=== PATIENT | female | born 1965 | race Caucasian/White ===

== ENCOUNTER 2016-10-04 12:58 | Inpatient (IN) | payer OTHER ==
[2016-10-04 13:27] VITALS: BMI 18.3
--- NOTE | 2016-10-04 15:39 | HP ---
CIWA Score - CIWA Score Nausea/Vomitin-Mild Nausea/No Vomiting Muscle Tremors: 4-Moderate,w/Arms Extend Anxiety: 3 Agitation: 4-Moderately Restless Paroxysmal Sweats: 3 Orientation: 0-Oriented Tacttile Disturbances: 0-None Auditory Disturbances: 0-None Visual Disturbances: 0-None Headache: 1-Very Mild CIWA-Ar Total Score: 16 Admission ROS [facility] - HPI Chief Complaint: I need to be here to stop drinking. Allergies/Adverse Reactions: Allergies Allergy/AdvReac Type Severity Reaction Status Date / Time No Known Allergies Allergy Verified 10/04/16 14:46 History of Present Illness: Pt is a 51yr old female with a history of alcohol dependence seeking detox for treatment. Exam Limitations: No Limitations - Ebola screening Have you traveled outside of the country in the last 21 days: No Have you had contact with anyone from an Ebola affected area: No Have you been sick,other than usual withdrawal symptoms: No Do you have a fever: No - Review of Systems Constitutional: Chills, Diaphoresis, Loss of Appetite, Night Sweats, Changes in sleep, Weight Stable EENT: reports: No Symptoms Reported, Blurred Vision Respiratory: reports: Cough, Productive cough Cardiac: reports: No Symptoms Reported, Syncope GI: reports: Diarrhea, Nausea, Poor Appetite, Poor Fluid Intake, Vomiting, Indigestion : reports: No Symptoms Reported Musculoskeletal: reports: Back Pain, Joint Pain, Muscle Pain Integumentary: reports: Bruising, Flushing, Pruritus, Sweating, Other ( scratches and scraps on skin from fall and her itching and scratching her skin) Neuro: reports: Tingling, Tremors Endocrine: reports: Excessive Sweating, Flushing, Intolerance to Cold, Intolerance to Heat Hematology: reports: No Symptoms Reported, Anemia Psychiatric: reports: No Sypmtoms Reported, Mood/Affect Appropiate, Orientated x3, Agitated, Anxious Other Systems: Reviewed and Negative Patient History - Patient Medical History Hx Anemia: No Hx Asthma: No Hx Chronic Obstructive Pulmonary Disease (COPD): No Hx Cancer: No Hx Cardiac Disorders: No Hx Congestive Heart Failure: No Hx Hypertension: No Hx Hypercholesterolemia: No Hx Pacemaker: No HX Cerebrovascular Accident: No Hx Seizures: Yes (2 days ago) Hx Dementia: No Hx Diabetes: No Hx Gastrointestinal Disorders: Yes Hx Liver Disease: No Hx Genitourinary Disorders: No Hx Sexually Transmitted Disorders: No Hx Renal Disease (ESRD): No Hx Thyroid Disease: No Hx Human Immunodeficiency Virus (HIV): No (negative) Hx Hepatitis C: No (negative) Hx Depression: Yes Hx Suicide Attempt: No Hx Bipolar Disorder: No Hx Schizophrenia: No - Patient Surgical History Past Surgical History: Yes Hx Neurologic Surgery: No Hx Cataract Extraction: No Hx Cardiac Surgery: No Hx Lung Surgery: No Hx Breast Surgery: No Hx Breast Biopsy: No Hx Abdominal Surgery: No Hx Appendectomy: No Hx Cholecystectomy: No Hx Genitourinary Surgery: No Hx Section: No Hx Orthopedic Surgery: Yes (bone spurs on left shoulder.) Other Surgical History: fx to left orbit Anesthesia Reaction: Yes (NAUSEA) - PPD History Previous Implant?: Yes Documented Results: Negative w/o proof PPD to be Administered?: Yes - Reproductive History Patient is a Female of Child Bearing Age (11 -55 yrs old): Yes Last Menstrual Period: 11/18/13 Patient : Yes - Smoking Cessation Smoking history: Current every day smoker Have you smoked in the past 12 months: Yes Aproximately how many cigarettes per day: 20 Cigars Per Day: 0 Hx Chewing Tobacco Use: No Initiated information on smoking cessation: Yes 'Breaking Loose' booklet given: 10/04/16 - Substance & Tx. History Hx Alcohol Use: Yes Substance Use Type: Alcohol Hx Substance Use Treatment: Yes (last detox 07/2015) - Substances Abused Alcohol Route: Oral Frequency: Daily Amount used: 2 pints of vodka Age of first use: 14 Date of Last Use: 10/04/16 Family Disease History - Family Disease History Family History: Denies Admission Physical Exam [facility] - Vital Signs Vital Signs: Vital Signs - 24 hr 10/04/16 13:24 Temperature 96.8 F L Pulse Rate 105 H Respiratory 20 Rate Blood Pressure 109/72 - Physical General Appearance: Yes: Moderate Distress, Thin, Tremorous, Irritable, Sweating , Anxious HEENTM: Yes: Normal Voice, Nasal Congestion, Rhinorrhea Respiratory: Yes: Lungs Clear, Normal Breath Sounds, No Respiratory Distress Neck: Yes: No masses,lesions,Nodules Breast: Yes: Within Normal Limits Cardiology: Yes: Regular Rhythm, Regular Rate, S1, S2 Abdominal: Yes: Normal Bowel Sounds, Non Tender, Soft Genitourinary: Yes: Within Normal Limits Back: Yes: Normal Inspection Musculoskeletal: Yes: full range of Motion, Back pain Extremities: Yes: Normal Inspection, Non-Tender, Tremors Neurological: Yes: Fully Oriented, Alert, Normal Response Integumentary: Yes: Normal Color, Diaphoresis Lymphatic: Yes: Within Normal Limits - Diagnostic (1) Alcohol dependence with withdrawal, uncomplicated Current Visit: Yes Status: Chronic (2) Nicotine dependence Current Visit: Yes Status: Chronic Qualifiers: Nicotine product type: cigarettes Substance use status: uncomplicated Qualified Code(s): F17.210 - Nicotine dependence, cigarettes, uncomplicated (3) Gastritis Current Visit: Yes Status: Chronic Qualifiers: Gastritis type: unspecified gastritis Chronicity: unspecified Gastritis bleeding: without bleeding Qualified Code(s): K29.70 - Gastritis, unspecified, without bleeding Cleared for Admission [facility] - Detox or Rehab [facility] Level of Care: Medically Managed Detox Regimen/Protocol: Librium [facility] Breath Alcohol Content Breath Alcohol Content: 0.333 Urine Pregancy Test - Result Urine Test Results: Negative- NO Line Present Urine Drug Screen - Results Drug Screen Negative: No Urine Drug Screen Results: COLTEN-Cocaine, BZO-Benzodiazepines
[2016-10-04] MEDS ORDERED: ACETAMINOPHEN 325 MG TABLET (FP) PO PRN (15:49)
[2016-10-04] MEDS ORDERED: guaiFENesin/D-METHORPHAN HB 10 ML UNIT-DOSE CUPS PO PRN (15:49)
[2016-10-04] MEDS ORDERED: MAGNESIUM CITRATE 300 ML BOTTLE PO PRN (15:49)
[2016-10-04] MEDS ORDERED: MAGNESIUM HYDROX 2400MG/30ML ORAL SUSPENSION 30 ML CUP PO PRN (15:49)
[2016-10-04] MEDS ORDERED: P-EPHED 60MG/TRIPROLIDI 2.5MG TABLET PO PRN (15:49)
[2016-10-04] MEDS ORDERED: IBUPROFEN 400 MG TABLET (FP) PO PRN (15:49)
[2016-10-04] MEDS ORDERED: NICOTINE POLACRILEX 4 MG GUM BC PRN (15:49)
[2016-10-04] MEDS ORDERED: diphenhydrAMINE HCL 50 MG CAPSULE PO PRN (15:49)
[2016-10-04] MEDS ORDERED: LOPERAMIDE HCL 2 MG CAPSULE PO PRN (15:49)
[2016-10-04] MEDS ORDERED: MENTHOL/PHENOL 1 EACH UD MM PRN (15:49)
[2016-10-04] MEDS ORDERED: hydrOXYzine PAMOATE 50 MG CAPSULE (FP) PO PRN (15:49)
[2016-10-04] MEDS ORDERED: chlordiazePOXIDE HCL 25 MG CAPSULE PO ONE (15:54)
[2016-10-04] MEDS ORDERED: ALBUTEROL SO4 2.5/IPRATROPIUM 0.5 INH SOL 3 ML VIAL.NEB. NEB PRN (15:56)
[2016-10-04] MEDS ORDERED: TRIMETHOBENZAMIDE HCL 200MG/2ML INJ IM PRN (15:57)
[2016-10-04] MEDS: chlordiazePOXIDE HCL 25 MG CAPSULE PO SCH ×2 (18:12→22:19)
[2016-10-04 19:03] LABS: URINE APPEARANCE SLCLOUDY; URINE BILIRUBIN NEGATIVE (NEGATIVE); URINE BLOOD NEGATIVE (NEGATIVE); URINE COLOR YELLOW; URINE GLUCOSE (UA) NEGATIVE (NEGATIVE); URINE KETONE NEGATIVE (NEGATIVE); URINE LEUK ESTERASE TRACE (NEGATIVE); URINE NITRITE NEGATIVE (NEGATIVE); URINE PROTEIN NEGATIVE (NEGATIVE); URINE UROBILINOGEN NEGATIVE mg/dL (0.2-1.0)
[2016-10-04 19:19] LABS: URINE BACTERIA RARE /hpf (NONE SEEN); URINE RBC 1 /hpf (0-3); URINE WBC 10 /hpf (3-5)
[2016-10-04] MEDS: chlordiazePOXIDE HCL 25 MG CAPSULE PO PRN (20:08)
[2016-10-04] MEDS: MAG HYDROX/AL HYDROX/SIMETH 30 ML UNIT-DOSE CUP PO PRN (20:09)
[2016-10-04] MEDS: THIAMINE HCL 100 MG TABLET (FP) PO SCH (22:19)
[2016-10-04] MEDS: ATORVASTATIN CA 10 MG TABLET (FP) PO SCH (22:19)
[2016-10-05] MEDS: chlordiazePOXIDE HCL 25 MG CAPSULE PO SCH ×4 (05:25→22:44)
[2016-10-05] MEDS: MAG HYDROX/AL HYDROX/SIMETH 30 ML UNIT-DOSE CUP PO PRN (09:01)
[2016-10-05] MEDS ORDERED: TRIMETHOBENZAMIDE HCL 200MG/2ML INJ IM PRN (09:14)
[2016-10-05] MEDS ORDERED: PRAZOSIN HCL 1 MG CAPSULE PO SCH (10:00)
[2016-10-05] MEDS: PANTOPRAZOLE 40 MG TABLET (FP) PO SCH (10:18)
[2016-10-05] MEDS: PRENATAL VITAMINS W/ FOLIC ACID TABLET (FP) PO SCH (10:18)
[2016-10-05] MEDS: NICOTINE 21 MG/24 HOURS TOPICAL PATCH TD SCH (10:20)
[2016-10-05 10:25] LABS: MCH 38.8 pg (25.7-33.7); MCHC 33.9 g/dl (32.0-36.0); MEAN CELL VOLUME 114.6 fl (80-96); MEAN PLT VOLUME 8.2 fl (7.5-11.1); PLATELET COUNT 158 K/MM3 (134-434); RDW 13.9 % (11.6-15.6); WHITE BLOOD COUNT 5.4 K/mm3 (4.0-10.0)
--- NOTE | 2016-10-05 10:42 | PN ---
[facility] CIWA - CIWA Score Nausea/Vomitin Muscle Tremors: 4-Moderate,w/Arms Extend Anxiety: 4-Mod. Anxious/Guarded Agitation: 4-Moderately Restless Paroxysmal Sweats: 3 Orientation: 0-Oriented Tacttile Disturbances: 2-Mild Itch/Numbness/Burn Auditory Disturbances: 0-None Visual Disturbances: 0-None Headache: 0-None Present CIWA-Ar Total Score: 19 BHS Progress Note (SOAP) Subjective: Anxiety,tremors,sweating,interrupted sleep,restless. Objective: 10/05/16 10:41 Vital Signs - 8 hr 10/05/16 10/05/16 10/05/16 03:30 06:00 10:00 Temperature 97.9 F 97.7 F Pulse Rate 58 L 66 Respiratory 18 18 18 Rate Blood Pressure 117/69 122/82 Laboratory Last Values WBC 5.4 K/mm3 (4.0-10.0) 10/05/16 06:00 RBC 3.48 M/mm3 (3.60-5.2) L 10/05/16 06:00 Hgb 13.5 GM/dL (10.7-15.3) D 10/05/16 06:00 Hct 39.9 % (32.4-45.2) 10/05/16 06:00 MCV 114.6 fl (80-96) H 10/05/16 06:00 MCH 38.8 pg (25.7-33.7) H D 10/05/16 06:00 MCHC 33.9 g/dl (32.0-36.0) 10/05/16 06:00 RDW 13.9 % (11.6-15.6) D 10/05/16 06:00 Plt Count 158 K/MM3 (134-434) D 10/05/16 06:00 MPV 8.2 fl (7.5-11.1) D 10/05/16 06:00 Urine Color Yellow 10/04/16 18:53 Urine Appearance Slcloudy 10/04/16 18:53 Urine pH 6.0 (5.0-8.0) 10/04/16 18:53 Ur Specific [place] 1.010 (1.005-1.025) 10/04/16 18:53 Urine Protein Negative (NEGATIVE) 10/04/16 18:53 Urine Glucose (UA) Negative (NEGATIVE) 10/04/16 18:53 Urine Ketones Negative (NEGATIVE) 10/04/16 18:53 Urine Blood Negative (NEGATIVE) 10/04/16 18:53 Urine Nitrite Negative (NEGATIVE) 10/04/16 18:53 Urine Bilirubin Negative (NEGATIVE) 10/04/16 18:53 Urine Urobilinogen Negative mg/dL (0.2-1.0) 10/04/16 18:53 Ur Leukocyte Esterase Trace (NEGATIVE) 10/04/16 18:53 Urine RBC 1 /hpf (0-3) 10/04/16 18:53 Urine WBC 10 /hpf (3-5) 10/04/16 18:53 Ur Epithelial Cells Rare /hpf (FEW) 10/04/16 18:53 Urine Bacteria Rare /hpf (NONE SEEN) 10/04/16 18:53 labs noted Assessment: 10/05/16 10:41 Withdrawal sx. Plan: Continue detox
[2016-10-05 10:52] LABS: ALBUMIN 3.6 g/dl (3.4-5.0); ANION GAP 14 (8-16); CALCIUM 8.4 mg/dL (8.5-10.1); CO2 26 mmol/L (21-32); GLUCOSE,RANDOM 125 mg/dL (74-106)
[2016-10-05 10:55] LABS: ALK PHOS 169 U/L (45-117); BILIRUBIN,TOTAL 0.6 mg/dL (0.2-1.0); CREATININE 0.7 mg/dL (0.55-1.02); SGOT/AST 233 U/L (15-37); SGPT/ALT 99 U/L (12-78); TOT PROT 7.4 g/dl (6.4-8.2)
[2016-10-05] MEDS ORDERED: POTASSIUM CHLORIDE TABS 20 MEQ TABLET.ER (FP) PO ONE (13:18)
[2016-10-05] MEDS: chlordiazePOXIDE HCL 25 MG CAPSULE PO PRN (14:40)
--- NOTE | 2016-10-05 17:37 | CONSULT ---
[facility] Psychiatric Consult - Data Date of interview: 10/05/16 Admission source: 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 Substance Abuse History: Patient confirms this report in this interview. Smoking Cessation. Smoking history: Current every day smoker. Have you smoked in the past 12 months: Yes. Aproximately how many cigarettes per day: 20. Cigars Per Day: 0. Hx Chewing Tobacco Use: No. Initiated information on smoking cessation: Yes. 'Breaking Loose' booklet given: 10/04/16. - Substance & Tx. History. Hx Alcohol Use: Yes. Substance Use Type: Alcohol. Hx Substance Use Treatment: Yes (last detox 07/2015). - Substances Abused. Alcohol. Route: Oral. Frequency: Daily. Amount used: 2 pints of vodka. Age of first use: 14. Date of Last Use: 10/04/16 Medical History: History of pancreatitis,gastritis,colitis,alcohol-related seizures and fracture of right fibula.Patient uses a cane for ambulation. Psychiatric History: History of one psychiatric hospitalization (1995) at [facility] ([address]).Diagnosed with Bipolar Disorder, PTSD,Panic Disorder and MDD (self-report).Ms Nava is currently followed by [facility]esta psychiatrist at the [facility].Medications : prozac 80 mg/day + neurontin 600 mg po tid + ambien 10 mg/hs + prazosin 1 mg/ hs).No history of suicide attempts. Physical/Sexual Abuse/Trauma History: Not discussed in this interview. Additional Comment: Urine Drug Screen Results: COLTEN-Cocaine, BZO- Benzodiazepines.Noted. Mental Status Exam - Mental Status Exam Alert and Oriented to: Time, Place, Person Cognitive Function: Grossly Intact Patient Appearance: Unkempt, Disheveled (thin habitus) Mood: Withdrawn, Anxious Affect: Constricted Patient Behavior: Fatigued, Cooperative Speech Pattern: Clear Voice Loudness: Moderately Soft/Quiet Thought Process: Goal Oriented Thought Disorder: Not Present Hallucinations: Denies Suicidal Ideation: Denies Homicidal Ideation: Denies Insight/Judgement: Poor Sleep: Poorly, Difficulty falling asleep Appetite: Poor, Weight loss Gait/Station: Normal Psychiatric Findings - Problem List ([place] 1, 2,3) (1) Alcohol dependence with withdrawal, uncomplicated Current Visit: Yes Status: Acute (2) Cocaine dependence Current Visit: Yes Status: Acute Qualifiers: Substance use status: uncomplicated Qualified Code(s): F14.20 - Cocaine dependence, uncomplicated (3) Nicotine dependence Current Visit: Yes Status: Acute Qualifiers: Nicotine product type: cigarettes Substance use status: uncomplicated Qualified Code(s): F17.210 - Nicotine dependence, cigarettes, uncomplicated (4) Drug-induced mood disorder Current Visit: Yes Status: Acute (5) Bipolar disorder Current Visit: Yes Status: Chronic Comment: Historical diagnosis. (6) Post traumatic stress disorder (PTSD) Current Visit: Yes Status: Chronic (7) Gastritis Current Visit: Yes Status: Chronic Qualifiers: Gastritis type: unspecified gastritis Chronicity: unspecified Gastritis bleeding: without bleeding Qualified Code(s): K29.70 - Gastritis, unspecified, without bleeding (8) Hyperlipidemia Current Visit: Yes Status: Chronic Qualifiers: Hyperlipidemia type: mixed hyperlipidemia Qualified Code(s): E78.2 - Mixed hyperlipidemia (9) Insomnia Current Visit: Yes Status: Acute - Initial Treatment Plan Initial Treatment Plan: Psychoeducation.Detoxification.Ambien 10 mg po hs prn.Patient is made aware of risk of parasomnias.She agrees with this careplan.Observation.Patient reports that she has not taken her medications for more than a week.Wants to resume prozac.Will restart at 30 mg po daily as a precaution (patient is not a reliable historian).
[2016-10-05] MEDS: TRIMETHOBENZAMIDE HCL 300 MG CAPSULE PO PRN (22:44)
[2016-10-05] MEDS: THIAMINE HCL 100 MG TABLET (FP) PO SCH (22:44)
[2016-10-05] MEDS: PRAZOSIN HCL 1 MG CAPSULE PO SCH (22:44)
[2016-10-05] MEDS: ATORVASTATIN CA 10 MG TABLET (FP) PO SCH (22:44)
[2016-10-05] MEDS: POTASSIUM CHLORIDE TABS 20 MEQ TABLET.ER (FP) PO SCH (22:44)
[2016-10-06] MEDS: chlordiazePOXIDE HCL 25 MG CAPSULE PO SCH ×2 (06:17→10:50)
[2016-10-06] MEDS ORDERED: FLUoxetine HCL 10 MG CAPSULE (FP) PO SCH (10:00)
[2016-10-06] MEDS: PRENATAL VITAMINS W/ FOLIC ACID TABLET (FP) PO SCH (10:49)
[2016-10-06] MEDS: PANTOPRAZOLE 40 MG TABLET (FP) PO SCH (10:50)
[2016-10-06] MEDS: POTASSIUM CHLORIDE TABS 20 MEQ TABLET.ER (FP) PO SCH ×2 (10:50→23:18)
[2016-10-06] MEDS: NICOTINE 21 MG/24 HOURS TOPICAL PATCH TD SCH (10:50)
[2016-10-06] MEDS: FLUoxetine HCL 10 MG CAPSULE (FP) PO SCH (10:50)
--- NOTE | 2016-10-06 11:19 | PN ---
S CIWA - CIWA Score Nausea/Vomitin Muscle Tremors: 4-Moderate,w/Arms Extend Anxiety: 4-Mod. Anxious/Guarded Agitation: 4-Moderately Restless Paroxysmal Sweats: 3 Orientation: 0-Oriented Tacttile Disturbances: 0-None Auditory Disturbances: 0-None Visual Disturbances: 0-None Headache: 0-None Present CIWA-Ar Total Score: 18 [facility] Progress Note (SOAP) Subjective: Angry,yelling because she did not sleep last night.Tremors,sweating,interrupted sleep,nausea,vomiting, body aches. Objective: 10/06/16 11:18 Vital Signs - 8 hr 10/06/16 10/06/16 10/06/16 03:30 06:00 10:00 Temperature 97.9 F 97.7 F Pulse Rate 68 76 Respiratory 18 18 18 Rate Blood Pressure 104/69 100/76 Laboratory Last Values WBC 5.4 K/mm3 (4.0-10.0) 10/05/16 06:00 RBC 3.48 M/mm3 (3.60-5.2) L 10/05/16 06:00 Hgb 13.5 GM/dL (10.7-15.3) D 10/05/16 06:00 Hct 39.9 % (32.4-45.2) 10/05/16 06:00 MCV 114.6 fl (80-96) H 10/05/16 06:00 MCH 38.8 pg (25.7-33.7) H D 10/05/16 06:00 MCHC 33.9 g/dl (32.0-36.0) 10/05/16 06:00 RDW 13.9 % (11.6-15.6) D 10/05/16 06:00 Plt Count 158 K/MM3 (134-434) D 10/05/16 06:00 MPV 8.2 fl (7.5-11.1) D 10/05/16 06:00 Sodium 138 mmol/L (136-145) 10/05/16 06:00 Potassium 2.9 mmol/L (3.5-5.1) L* D 10/05/16 06:00 Chloride 98 mmol/L (98-107) 10/05/16 06:00 Carbon Dioxide 26 mmol/L (21-32) 10/05/16 06:00 Anion Gap 14 (8-16) 10/05/16 06:00 BUN 8 mg/dL (7-18) D 10/05/16 06:00 Creatinine 0.7 mg/dL (0.55-1.02) D 10/05/16 06:00 Creat Clearance w eGFR > 60 (>60) 10/05/16 06:00 Random Glucose 125 mg/dL (74-106) H D 10/05/16 06:00 Calcium 8.4 mg/dL (8.5-10.1) L 10/05/16 06:00 Total Bilirubin 0.6 mg/dL (0.2-1.0) 10/05/16 06:00 AST 233 U/L (15-37) H D 10/05/16 06:00 ALT 99 U/L (12-78) H D 10/05/16 06:00 Alkaline Phosphatase 169 U/L (45-117) H D 10/05/16 06:00 Total Protein 7.4 g/dl (6.4-8.2) 10/05/16 06:00 Albumin 3.6 g/dl (3.4-5.0) 10/05/16 06:00 Urine Color Yellow 10/04/16 18:53 Urine Appearance Slcloudy 10/04/16 18:53 Urine pH 6.0 (5.0-8.0) 10/04/16 18:53 Ur Specific [place] 1.010 (1.005-1.025) 10/04/16 18:53 Urine Protein Negative (NEGATIVE) 10/04/16 18:53 Urine Glucose (UA) Negative (NEGATIVE) 10/04/16 18:53 Urine Ketones Negative (NEGATIVE) 10/04/16 18:53 Urine Blood Negative (NEGATIVE) 10/04/16 18:53 Urine Nitrite Negative (NEGATIVE) 10/04/16 18:53 Urine Bilirubin Negative (NEGATIVE) 10/04/16 18:53 Urine Urobilinogen Negative mg/dL (0.2-1.0) 10/04/16 18:53 Ur Leukocyte Esterase Trace (NEGATIVE) 10/04/16 18:53 Urine RBC 1 /hpf (0-3) 10/04/16 18:53 Urine WBC 10 /hpf (3-5) 10/04/16 18:53 Ur Epithelial Cells Rare /hpf (FEW) 10/04/16 18:53 Urine Bacteria Rare /hpf (NONE SEEN) 10/04/16 18:53 RPR Titer Nonreactive (NONREACTIVE) 10/05/16 06:00 labs noted Assessment: 10/06/16 11:19 Withdrawal sx. Plan: continue detox
[2016-10-06] MEDS: chlordiazePOXIDE HCL 25 MG CAPSULE PO PRN (11:59)
[2016-10-06] MEDS: TRIMETHOBENZAMIDE HCL 300 MG CAPSULE PO PRN (11:59)
--- NOTE | 2016-10-06 13:29 | PN ---
[facility] Progress Note Note: Pt. claims that nurse gave the tigan IM in the wrong spot. She proceeded to tell & show us where the nurse gave the injection -in the outer upper quadrant. The nursing grading supervisor and & I toll her that this is where the injection should be given. Pt. is still unhappy and started to yell at us. P : D/C tigan IM & PO Zofran 8mg sl q4h prn Gabapentin 300mg bid
--- NOTE | 2016-10-06 14:01 | EKG ---
Test Reason : Blood Pressure : / mmHG Vent. Rate : 073 BPM Atrial Rate : 073 BPM P-R Int : 130 ms QRS Dur : 100 ms QT Int : 404 ms P-R-T Axes : 059 080 073 degrees QTc Int : 445 ms NORMAL SINUS RHYTHM NORMAL ECG NO PREVIOUS ECGS AVAILABLE Confirmed by JABARI CASSIDY, SURESH ([id number] on 10/06/2016 2:00:50 PM Referred By: Confirmed By:SURESH BARBOZA MD
[2016-10-06] MEDS: GABAPENTIN 300 MG CAPSULE (FP) PO SCH ×2 (14:24→22:57)
[2016-10-06] MEDS: ONDANSETRON *ODT* 4 MG TABLET SL PRN (14:24)
[2016-10-06] MEDS: chlordiazePOXIDE 5 MG CAPSULE PO SCH ×2 (17:19→22:56)
[2016-10-06] MEDS ORDERED: ZOLPIDEM TARTRATE 5 MG TABLET PO SCH (22:00)
[2016-10-06] MEDS: ATORVASTATIN CA 10 MG TABLET (FP) PO SCH (22:56)
[2016-10-06] MEDS: PRAZOSIN HCL 1 MG CAPSULE PO SCH (22:57)
[2016-10-06] MEDS: THIAMINE HCL 100 MG TABLET (FP) PO SCH (22:57)
[2016-10-07] MEDS: chlordiazePOXIDE 5 MG CAPSULE PO SCH ×2 (06:10→10:34)
[2016-10-07] MEDS: PANTOPRAZOLE 40 MG TABLET (FP) PO SCH (10:34)
[2016-10-07] MEDS: POTASSIUM CHLORIDE TABS 20 MEQ TABLET.ER (FP) PO SCH ×2 (10:34→22:46)
[2016-10-07] MEDS: NICOTINE 21 MG/24 HOURS TOPICAL PATCH TD SCH (10:34)
[2016-10-07] MEDS: GABAPENTIN 300 MG CAPSULE (FP) PO SCH ×2 (10:34→22:46)
[2016-10-07] MEDS: PRENATAL VITAMINS W/ FOLIC ACID TABLET (FP) PO SCH (10:34)
[2016-10-07] MEDS: FLUoxetine HCL 10 MG CAPSULE (FP) PO SCH (10:36)
--- NOTE | 2016-10-07 10:46 | PN ---
[facility] Progress Note (SOAP) Subjective: irritable yelling cursing nausea Objective: 10/07/16 10:44 Vital Signs Temperature 97.7 F 10/07/16 10:22 Pulse Rate 58 L 10/07/16 10:22 Respiratory Rate 18 10/07/16 10:22 Blood Pressure 90/62 10/07/16 10:22 O2 Sat by Pulse Oximetry (%) awake/alert no acute distress ambulating Assessment: 10/07/16 10:45 withdrawal sx Plan: continue detox increase fluids continue anti-nausea medication as ordered d/c in am
[2016-10-07] MEDS: chlordiazePOXIDE HCL 10 MG CAPSULE PO SCH ×2 (17:43→22:46)
[2016-10-07] MEDS: ATORVASTATIN CA 10 MG TABLET (FP) PO SCH (22:46)
[2016-10-07] MEDS: THIAMINE HCL 100 MG TABLET (FP) PO SCH (22:46)
[2016-10-08 06:32] VITALS: BP 94/52; PULSE 50; TEMP 97.5
[2016-10-08] MEDS: chlordiazePOXIDE HCL 10 MG CAPSULE PO SCH (07:50)
[2016-10-08] MEDS: ONDANSETRON *ODT* 4 MG TABLET SL PRN (08:15)
[2016-10-08] MEDS: MAG HYDROX/AL HYDROX/SIMETH 30 ML UNIT-DOSE CUP PO PRN (08:15)
[2016-10-08] MEDS: NICOTINE 21 MG/24 HOURS TOPICAL PATCH TD SCH (09:01)
[2016-10-08] MEDS: GABAPENTIN 300 MG CAPSULE (FP) PO SCH (09:01)
[2016-10-08] MEDS: PANTOPRAZOLE 40 MG TABLET (FP) PO SCH (09:01)
[2016-10-08] MEDS: POTASSIUM CHLORIDE TABS 20 MEQ TABLET.ER (FP) PO SCH (09:01)
[2016-10-08] MEDS: FLUoxetine HCL 10 MG CAPSULE (FP) PO SCH (09:01)
[2016-10-08] MEDS: PRENATAL VITAMINS W/ FOLIC ACID TABLET (FP) PO SCH (09:01)
--- NOTE | 2016-10-08 09:05 | DS ---
[facility] Detox Discharge Summary Admission Date: 10/04/16 Discharge Date: 10/08/16 - History Present History: Alcohol Dependence, Cocaine Dependence - Physical Exam Results Vital Signs: Vital Signs Temperature 97.5 F L 10/08/16 06:32 Pulse Rate 50 L 10/08/16 06:32 Respiratory Rate 16 10/08/16 06:32 Blood Pressure 94/52 10/08/16 06:32 O2 Sat by Pulse Oximetry (%) - Treatment Hospital Course: Detox Protocol Followed, Detoxed Safely, Responded well, Discharged Condition Good, Rehab Referral Accepted - Medication Discharge Medications: Ambulatory Orders Pantoprazole Sodium [Protonix -] 40 mg PO DAILY #30 tablet.ec 01/09/15 Zolpidem Tartrate [Ambien] 10 mg PO HS #30 tablet 01/09/15 Simvastatin [Zocor -] 5 mg PO HS 08/09/15 Fluoxetine HCl [Prozac -] 80 mg PO DAILY 10/04/16 Gabapentin [Neurontin] 600 mg PO TID 10/04/16 Prazosin HCl [Minipress -] 2 mg PO BID 10/04/16 - Diagnosis (1) Alcohol dependence with withdrawal, uncomplicated Current Visit: Yes Status: Chronic (2) Nicotine dependence Current Visit: Yes Status: Chronic Qualifiers: Nicotine product type: cigarettes Substance use status: uncomplicated Qualified Code(s): F17.210 - Nicotine dependence, cigarettes, uncomplicated (3) Gastritis Current Visit: Yes Status: Chronic Qualifiers: Gastritis type: unspecified gastritis Chronicity: unspecified Gastritis bleeding: without bleeding Qualified Code(s): K29.70 - Gastritis, unspecified, without bleeding - AMA Did Patient Leave Against Medical Advice: No ("I am going home")
== END 2016-10-08 09:14 | disposition home or self-care (01) | DRG 774 ==
LOC: YASAS 12:58 → Y6N 15:45
PROVIDERS: ADMIT Internal Medicine; ATTEND Internal Medicine
PROC: HZ2ZZZZ Detoxification Services for Substance Abuse Treatment (ICD-10-PCS; principal; 2016-10-04)
DX: F10.230 Alcohol dependence with withdrawal, uncomplicated (principal); F14.20 Cocaine dependence, uncomplicated; F17.210 Nicotine dependence, cigarettes, uncomplicated; F19.24 Other psychoactive substance dependence with psychoactive substance-induced mood disorder; F31.9 Bipolar disorder, unspecified; F43.10 Post-traumatic stress disorder, unspecified; K29.70 Gastritis, unspecified, without bleeding; E78.2 Mixed hyperlipidemia; G47.00 Insomnia, unspecified; R26.2 Difficulty in walking, not elsewhere classified; Z99.89 Dependence on other enabling machines and devices; Z86.69 Personal history of other diseases of the nervous system and sense organs
CPT/HCPCS: 36415; 80053; 81003; 81015; 85027; 86593; 93005; 93010

== ENCOUNTER 2021-07-25 12:49 | Inpatient (IN) | payer OTHER ==
[2021-07-25] MEDS ORDERED: MAGNESIUM CITRATE 300 ML BOTTLE PO PRN (15:32)
[2021-07-25] MEDS ORDERED: IBUPROFEN 600 MG TABLET (FP) PO PRN (15:32)
[2021-07-25] MEDS ORDERED: DICYCLOMINE HCL 10 MG CAPSULE PO PRN (15:32)
[2021-07-25] MEDS ORDERED: LOPERAMIDE HCL 2 MG CAPSULE PO PRN (15:32)
[2021-07-25] MEDS ORDERED: NALOXONE HCL (KLOXXADO) 8 MG SPRAY NS PRN (15:32)
[2021-07-25] MEDS ORDERED: IBUPROFEN 400 MG TABLET (FP) PO PRN (15:32)
[2021-07-25] MEDS ORDERED: BISMUTH SUBSALICYLATE 524 MG/30 ML PO PRN (15:32)
[2021-07-25] MEDS ORDERED: ACETAMINOPHEN 325 MG TABLET (FP) PO PRN ×2 (15:32)
[2021-07-25] MEDS ORDERED: BENZOCAINE/MENTHOL (CHLORASEPTIC ) LOZENGE MM PRN (15:32)
[2021-07-25] MEDS ORDERED: NICOTINE 10 MG CARTRIDGE (INHALER) IH PRN (15:32)
[2021-07-25] MEDS ORDERED: MAGNESIUM HYDROX 2400MG/30ML ORAL SUSPENSION 30 ML CUP PO PRN (15:32)
[2021-07-25] MEDS ORDERED: TRIMETHOBENZAMIDE HCL 200MG/2ML INJ IM ONE (15:45)
[2021-07-25 16:43] VITALS: BMI 17.7
[2021-07-25] MEDS: PRENATAL VITAMINS W/ FOLIC ACID TABLET (FP) PO SCH (18:28)
[2021-07-25] MEDS: hydrOXYzine PAMOATE 25 MG CAPSULE (FP) PO SCH ×2 (18:29→22:55)
[2021-07-25] MEDS: LORazepam 2 MG TABLET PO SCH ×2 (18:29→22:55)
[2021-07-25] MEDS: LORazepam 1 MG TABLET PO PRN (19:52)
[2021-07-25] MEDS: THIAMINE HCL 100 MG TABLET (FP) PO SCH (22:55)
[2021-07-25] MEDS: MELATONIN 5 MG TABLETS PO SCH (22:55)
[2021-07-26] MEDS: LORazepam 2 MG TABLET PO SCH ×4 (06:19→22:27)
[2021-07-26] MEDS: hydrOXYzine PAMOATE 25 MG CAPSULE (FP) PO SCH ×5 (06:19→22:27)
[2021-07-26] MEDS: PRENATAL VITAMINS W/ FOLIC ACID TABLET (FP) PO SCH (10:15)
[2021-07-26 11:03] LABS: HEMATOCRIT 36.9 % (32.4-45.2); HEMOGLOBIN 12.4 GM/dL (10.7-15.3); MCH 33.5 pg (25.7-33.7); MCHC 33.7 g/dl (32.0-36.0); MEAN CELL VOLUME 99.5 fl (80-96); MEAN PLT VOLUME 7.2 fl (7.5-11.1); PLATELET COUNT 176 10^3/uL (134-434); RBC 3.71 M/mm3 (3.60-5.2); RDW 14.4 % (11.6-15.6); WHITE BLOOD COUNT 4.4 K/mm3 (4.0-10.0)
[2021-07-26 11:20] LABS: BLOOD UREA NITROGEN 17.3 mg/dL (7-18); CREATININE 0.7 mg/dL (0.55-1.3)
[2021-07-26 11:22] LABS: BILIRUBIN,TOTAL 0.8 mg/dL (0.2-1); CALCIUM 9.1 mg/dL (8.5-10.1); TOT PROT 7.2 g/dl (6.4-8.2)
[2021-07-26 11:23] LABS: ALBUMIN 3.5 g/dl (3.4-5.0)
[2021-07-26] MEDS ORDERED: cloNIDine HCL 0.1 MG TABLET PO PRN (14:18)
[2021-07-26] MEDS ORDERED: POTASSIUM CHLORIDE ORAL LIQUID 20 MEQ/15 ML PO ONE ×2 (15:00→19:00)
[2021-07-26] MEDS ORDERED: DIPHENOXYLATE 2.5/ATROPINE.025 1 COMBO TABLET PO ONE (15:20)
[2021-07-26] MEDS: BACITRACIN 0.9 GM PACKET TP SCH (15:25)
[2021-07-26] MEDS: PANTOPRAZOLE 40 MG TABLET PO SCH (15:26)
[2021-07-26] MEDS: MELATONIN 5 MG TABLETS PO SCH (22:26)
[2021-07-26] MEDS: THIAMINE HCL 100 MG TABLET (FP) PO SCH (22:27)
[2021-07-26] MEDS: METHOCARBAMOL 500 MG TABLET PO PRN (22:27)
[2021-07-27] MEDS: LORazepam 1 MG TABLET PO SCH ×4 (07:16→23:22)
[2021-07-27] MEDS: hydrOXYzine PAMOATE 25 MG CAPSULE (FP) PO SCH ×5 (07:17→23:26)
[2021-07-27] MEDS: PRENATAL VITAMINS W/ FOLIC ACID TABLET (FP) PO SCH (10:25)
[2021-07-27] MEDS: BACITRACIN 0.9 GM PACKET TP SCH (10:25)
[2021-07-27] MEDS: PANTOPRAZOLE 40 MG TABLET PO SCH (10:26)
[2021-07-27] MEDS: LORazepam 1 MG TABLET PO PRN (13:53)
[2021-07-27] MEDS: METHOCARBAMOL 500 MG TABLET PO PRN (18:08)
[2021-07-27] MEDS: MELATONIN 5 MG TABLETS PO SCH (23:25)
[2021-07-27] MEDS: THIAMINE HCL 100 MG TABLET (FP) PO SCH (23:27)
[2021-07-28] MEDS: ONDANSETRON *ODT* 4 MG TABLET SL PRN (01:33)
[2021-07-28] MEDS ORDERED: TRIMETHOBENZAMIDE HCL 200MG/2ML INJ IM ONE (05:03)
[2021-07-28] MEDS: LORazepam 0.5 MG TABLET PO SCH ×4 (05:21→22:23)
[2021-07-28] MEDS: hydrOXYzine PAMOATE 25 MG CAPSULE (FP) PO SCH ×5 (05:22→22:22)
[2021-07-28] MEDS: METHOCARBAMOL 500 MG TABLET PO PRN ×2 (06:29→18:16)
[2021-07-28] MEDS: LORazepam 0.5 MG TABLET PO PRN ×2 (07:21→20:21)
[2021-07-28] MEDS: MAG HYDROX/AL HYDROX/SIMETH 30 ML UNIT-DOSE CUP PO PRN ×2 (09:20→16:33)
[2021-07-28] MEDS: PANTOPRAZOLE 40 MG TABLET PO SCH (09:22)
[2021-07-28] MEDS: PRENATAL VITAMINS W/ FOLIC ACID TABLET (FP) PO SCH (10:18)
[2021-07-28] MEDS: BACITRACIN 0.9 GM PACKET TP SCH (10:20)
[2021-07-28] MEDS: THIAMINE HCL 100 MG TABLET (FP) PO SCH (22:22)
[2021-07-28] MEDS: MELATONIN 5 MG TABLETS PO SCH (22:24)
[2021-07-29] MEDS ORDERED: LORazepam 0.5 MG TABLET PO ONE (05:00)
[2021-07-29] MEDS: ONDANSETRON *ODT* 4 MG TABLET SL PRN (05:27)
[2021-07-29] MEDS: hydrOXYzine PAMOATE 25 MG CAPSULE (FP) PO SCH (05:28)
[2021-07-29] MEDS: MAG HYDROX/AL HYDROX/SIMETH 30 ML UNIT-DOSE CUP PO PRN (08:04)
[2021-07-29 09:34] VITALS: BP 116/82; PULSE 86; TEMP 96.9
== END 2021-07-29 09:51 | disposition home or self-care (01) | DRG 897 ==
LOC: YASAS 12:49 → Y6N 17:17
PROVIDERS: ADMIT Allergy & Immunology; ATTEND Psychiatry & Neurology Addiction Medicine
PROC: HZ2ZZZZ Detoxification Services for Substance Abuse Treatment (ICD-10-PCS; principal; 2021-07-25)
DX: F10.230 Alcohol dependence with withdrawal, uncomplicated (principal); F14.10 Cocaine abuse, uncomplicated; F17.210 Nicotine dependence, cigarettes, uncomplicated; F25.9 Schizoaffective disorder, unspecified; F31.9 Bipolar disorder, unspecified; F41.9 Anxiety disorder, unspecified; F43.10 Post-traumatic stress disorder, unspecified; F19.24 Other psychoactive substance dependence with psychoactive substance-induced mood disorder; B18.2 Chronic viral hepatitis C; M54.50 Low back pain, unspecified; G89.29 Other chronic pain; Z96.642 Presence of left artificial hip joint; Z99.89 Dependence on other enabling machines and devices; Z87.19 Personal history of other diseases of the digestive system
CPT/HCPCS: 36415; 80053; 82962; 84132; 85027; 86780; 93005; 93010; C9803-CS; J0735; Q0162; U0003; U0005